=== PATIENT | female | born 1980 | race Asian ===

== ENCOUNTER 2018-05-25 20:53 | Inpatient (IN) | payer MEDICAID, OTHER ==
[2018-05-25 21:56] LABS: RUPTURE FETAL MEMBRANES POSITIVE (NEGATIVE)
[2018-05-26] MEDS ORDERED: LIDOCAINE 1% (MPF) 30 ML INJ INJ (00:30)
[2018-05-26] MEDS ORDERED: METHYLERGONOVINE 0.2 MG INJ IM ×3 (00:30→21:00)
[2018-05-26] MEDS ORDERED: OXYTOCIN 30 UNITS/LR 500 ML IV ×3 (00:30→21:00)
[2018-05-26] MEDS ORDERED: MISOPROSTOL 200 MCG TAB PR ×3 (00:30→21:00)
[2018-05-26] MEDS ORDERED: BUTORPHANOL 2 MG INJ IV (00:30)
[2018-05-26] MEDS ORDERED: CARBOPROST 250 MCG INJ IM ×3 (00:30→21:00)
[2018-05-26 01:49] LABS: ADD MAN DIFF? NO
[2018-05-26 01:53] LABS: BASOPHILS % 0.2 % (0.0-2.0); EOSINOPHILS # 0.1 10^3/ul (0.0-0.5); HEMATOCRIT 39.5 % (37.0-47.0); HEMOGLOBIN 12.6 g/dl (12.0-16.0); LYMPHOCYTES # 1.8 10^3/ul (0.8-2.9); LYMPHOCYTES % 17.6 % (15.0-51.0); MEAN CORPUSCULAR HEMOGLOBIN 28.3 pg (29.0-33.0); MEAN CORPUSCULAR HGB CONC 31.9 g/dl (32.0-37.0); MEAN CORPUSCULAR VOLUME 88.8 fl (82.0-101.0); MEAN PLATELET VOLUME 10.7 fl (7.4-10.4); MONOCYTE # 0.8 10^3/ul (0.3-0.9); MONOCYTES % 7.8 % (0.0-11.0); NEUTROPHIL # 7.5 10^3/ul (1.6-7.5); NEUTROPHILS % 72.8 % (39.0-77.0); PLATELET COUNT 161 10^3/UL (140-415); RED BLOOD COUNT 4.45 10^6/ul (4.20-5.40); RED CELL DISTRIBUTION WIDTH 13.6 % (11.5-14.5)
[2018-05-26 01:53] LABS: WHITE BLOOD COUNT 10.3 10^3/ul (4.8-10.8)
[2018-05-26 02:14] LABS: INR 0.88; PT RATIO 0.9
[2018-05-26 02:15] LABS: PARTIAL THROMBOPLASTIN TIME 26.2 Sec (23.0-35.0)
[2018-05-26 03:08] LABS: HEPATITIS B SURFACE ANTIGEN NEGATIVE (NEGATIVE)
[2018-05-26] MEDS: LACTATED RINGER'S 1,000 ML IV ×3 (04:32→22:37)
[2018-05-26] MEDS: AMPICILLIN 2 GM/NS (PMX) 100 ML IV (04:33)
[2018-05-26] MEDS: OXYTOCIN 30 UNITS/LR 500 ML IV ×3 (06:06→15:13)
[2018-05-26] MEDS: AMPICILLIN 1 GM/NS (PMX) 50 ML IV ×2 (10:20→14:34)
[2018-05-26] MEDS ORDERED: LIDOCAINE 1% (MPF) 30 ML INJ (14:43)
[2018-05-26 15:19] LABS: RAPID PLASMA REAGIN NONREACTIVE (NR)
[2018-05-26] MEDS: IBUPROFEN 600 MG TAB PO ×3 (16:48→23:39)
[2018-05-26] MEDS ORDERED: BENZOCAINE 20% 56 ML SPRAY TOP (17:30)
[2018-05-26] MEDS ORDERED: LANOLIN 7 GM TUBE TOP (17:30)
[2018-05-26] MEDS ORDERED: ZOLPIDEM 5 MG TAB PO ×2 (17:30→21:00)
[2018-05-26] MEDS ORDERED: WITCH HAZEL/GLYCERIN PAD PR (17:30)
[2018-05-26] MEDS ORDERED: OXYCODONE/ASPIRIN (4.88/325) TAB PO ×3 (17:30→21:00)
[2018-05-26] MEDS: INFLUENZA VIRUS VACCINE 0.5 ML (DISPENSING) IM* (20:30)
[2018-05-26] MEDS ORDERED: SENNA/DOCUSATE NA (8.6MG/50MG) TAB PO (21:00)
[2018-05-26] MEDS: SENNA/DOCUSATE NA (8.6MG/50MG) TAB PO (21:26)
[2018-05-26] MEDS: WITCH HAZEL/GLYCERIN PAD PR (22:37)
[2018-05-26] MEDS: LANOLIN 7 GM TUBE TOP (22:37)
[2018-05-26] MEDS: BENZOCAINE 20% 56 ML SPRAY TOP (22:37)
[2018-05-27] MEDS: IBUPROFEN 600 MG TAB PO ×4 (06:01→23:49)
[2018-05-27] MEDS: SENNA/DOCUSATE NA (8.6MG/50MG) TAB PO ×2 (09:11→23:48)
[2018-05-27 09:29] LABS: ADD MAN DIFF? NO
[2018-05-27 09:33] LABS: BASOPHILS % 0.2 % (0.0-2.0); EOSINOPHILS % 0.2 % (0.0-7.0); HEMATOCRIT 39.8 % (37.0-47.0); HEMOGLOBIN 12.9 g/dl (12.0-16.0); LYMPHOCYTES # 1.6 10^3/ul (0.8-2.9); LYMPHOCYTES % 12.5 % (15.0-51.0); MEAN CORPUSCULAR HEMOGLOBIN 28.5 pg (29.0-33.0); MEAN CORPUSCULAR HGB CONC 32.4 g/dl (32.0-37.0); MEAN CORPUSCULAR VOLUME 88.1 fl (82.0-101.0); MEAN PLATELET VOLUME 10.8 fl (7.4-10.4); MONOCYTE # 0.7 10^3/ul (0.3-0.9); MONOCYTES % 5.2 % (0.0-11.0); NEUTROPHIL # 10.3 10^3/ul (1.6-7.5); NEUTROPHILS % 81.3 % (39.0-77.0); PLATELET COUNT 176 10^3/UL (140-415); RED BLOOD COUNT 4.52 10^6/ul (4.20-5.40); RED CELL DISTRIBUTION WIDTH 13.4 % (11.5-14.5)
[2018-05-27 09:33] LABS: WHITE BLOOD COUNT 12.6 10^3/ul (4.8-10.8)
[2018-05-27] MEDS: INFLUENZA VIRUS VACCINE 0.5 ML (DISPENSING) IM* (17:40)
[2018-05-28] MEDS: IBUPROFEN 600 MG TAB PO ×2 (06:03→12:14)
[2018-05-28] MEDS: SENNA/DOCUSATE NA (8.6MG/50MG) TAB PO (08:36)
[2018-05-28] MEDS: OXYCODONE/ASPIRIN (4.88/325) TAB PO (08:36)
[2018-05-28] MEDS ORDERED: DIPHTH/TET/ACEL PERTUSS (ADULT) 0.5 ML VIAL IM* (09:00)
[2018-05-28] MEDS: DIPHTH/TET/ACEL PERTUSS (ADULT) 0.5 ML VIAL IM* (14:03)
== END 2018-05-28 15:35 | disposition home or self-care (01) | DRG 807 ==
LOC: OBT 20:53 → L-D 20:54 → PP1 05-26 17:05
PROVIDERS: Obstetrics & Gynecology
PROC: 10E0XZZ Delivery of Products of Conception, External Approach (ICD-10-PCS; principal; 2018-05-27)
PROC: 0W8NXZZ Division of Female Perineum, External Approach (ICD-10-PCS; 2018-05-27)
DX: O69.81X0 Labor and delivery complicated by cord around neck, without compression, not applicable or unspecified (principal); Z37.0 Single live birth; Z3A.39 39 weeks gestation of pregnancy
CPT/HCPCS: 76818; 84112; 85025; 85610; 85730; 86592; 86850; 86900; 86901; 87340; 90686; 90715